=== PATIENT | female | born 1990 | race African-American/Black ===

== ENCOUNTER 2020-03-24 17:49 | Emergency (ER) | payer SELFPAY ==
[~2020-03-24] VITALS: Ht 162.6 cm; Wt 65.0 kg
[2020-03-24 17:54] VITALS: BP 114/71
== END 2020-03-24 18:58 | disposition left against medical advice (07) ==
LOC: ER 17:49
DX: R07.89 Other chest pain (principal); Z53.21 Procedure and treatment not carried out due to patient leaving prior to being seen by health care provider